=== PATIENT | female | born 1965 | race Caucasian/White ===

== ENCOUNTER 2018-04-13 08:30 | Outpatient (CLI) | payer BC ==
--- NOTE | 2018-04-17 12:01 | MMO ---
BILATERAL SCREENING MAMMOGRAM: HISTORY: A 52-year-old female for screening mammography. COMPARISON: 02/24/2012 FINDINGS: Bilateral MLO and CC views of the breasts show scattered fibroglandular breast tissue. There is no e vidence of suspicious mass, suspicious cluster of microcalcifications, or area of architectural disto rtion. Interpretation of this mammogram was performed with the assistance of computer aided detection. IMPRESSION: BI-RADS Category 1-Negative. Annual screening mammography is recommended. POS: [facility]
== END 2018-04-13 08:31 | disposition home or self-care (01) ==
LOC: SCSMAMMO 08:30
PROVIDERS: ATTEND Obstetrics & Gynecology
DX: Z12.31 Encounter for screening mammogram for malignant neoplasm of breast (principal)
CPT/HCPCS: 77067